=== PATIENT | male | born 1980 | race Caucasian/White ===

== ENCOUNTER 2019-03-16 19:59 | Emergency (ER) | payer SELFPAY ==
[2019-03-16 20:00] VITALS: BP 116/66; PULSE 90; RESP 15; TEMP 36.6; BMI 28.3
--- NOTE | 2019-03-16 20:38 | RAD_ITS ---
STUDY: X-RAY - RIGHT KNEE REASON FOR EXAM: Male, 38 years old. Right knee pain. Swelling. TECHNIQUE: 4 view(s) of the knee. COMPARISON: None. FINDINGS: Normal visualized distal femur. Normal visualized proximal tibia and fibula. Normal proximal tibiofibular articulation. There is no demonstrated fracture. Normal medial femorotibial compartment. Normal lateral femorotibial compartment. Normal patellofemoral articulation. There is a moderate volume joint effusion. The soft tissue structures are unremarkable. RAD/Knee 4 or More Views IMPRESSION: Moderate effusion. Otherwise negative. Electronically Signed: Alfonso Arenas MD at 21:09 EDT , Service support ,
[2019-03-16] MEDS: Ketorolac 60 MG/2 ML Vial IM (20:47)
--- NOTE | 2019-03-16 20:49 | ED.VISSUMM ---
- ER Visit Summary Date of Service: 03/16/19 Chief Complaint: Right knee pain History of Present Illness: The patient is a [address] Miller. He reports he has right knee pain that began 2 days ago. He denies any trauma. No fall, MVA, or change in activity. He reports a sharp instead of 10 severity. Is worsened by nothing. Is relieved by ice. He denies any paresthesias or weakness distally. Review of systems: General: No fever, chills, cold sweats. Cardiovascular: No chest pain, palpitations. Respiratory: No cough, shortness of breath, dyspnea on exertion. Gastrointestinal: No abdominal pain, nausea, vomiting, diarrhea, melena, or hematochezia. Genitourinary: No dysuria, frequency, hematuria. Skin: No rash. Neuro: No headache, numbness, weakness. Physical Examination: Vitals: Stable. Afebrile. General: Well-nourished and well-developed. Head: Normocephalic atraumatic. Neck: Supple, no lymphadenopathy. No JVD. Nontender. Cardiovascular: Regular rate and rhythm. No murmurs. Respiratory: No respiratory distress. Clear to auscultation bilaterally. Abdominal: Soft, nontender, nondistended, normal bowel sounds. No guarding, rebound, or peritoneal signs. Back: Nontender. Extremities: Right knee: Moderate diffuse tenderness palpation. He does have a moderate joint effusion. There is no erythema or warmth to suggest a septic joint. He has pain, but no ligamentous instability with anterior/posterior drawer and medial/lateral stress. Skin: Normal color, no rash. Neurologic: Alert and oriented ?3. Cranial nerves II through XII are intact. Normal strength and sensation. Psych: Normal affect. Test Results: Clinical Impression(s) from Imaging Studies Knee X-Ray 03/16/19 20:38 IMPRESSION: Moderate effusion. Otherwise negative. Electronically Signed: Alfonso Arenas MD at 21:09 EDT , Service support , Emergency Department Course and Treatment: Patient was given a dose of Toradol IM. I did discuss the possibility of an arthrocentesis with him. He does not want this performed. Treatment Plan: Patient will be discharged instructions to ice his knee. Use Tylenol and/or ibuprofen for pain. Follow-up with his primary care physician 1 week if not improving. We did discuss the possibility of ligamentous or cartilaginous injury that would require MRI for further characterization. Disposition: To home in improved and stable condition. Impression: 1. Right knee pain, acute. This note was generated with [employer] dictation software. It may contain incorrect words, spelling, and punctuation that were not noted in review of the chart prior to signing ED Disposition - Plan for ED Patient: Disposition: Home or Assisted Living Instructions: KNEE PAIN, Uncertain Cause Prescriptions: Naproxen [Naprosyn] 500 mg PO BID #14 tab Prescription Printed Referrals: Ethan Miller DO [Primary Care Provider] - 1 Week if not improving
[2019-03-16 21:03] VITALS: RESP 16
== END 2019-03-16 21:03 | disposition home or self-care (01) ==
LOC: ED 20:39
PROVIDERS: Emergency Provider Emergency Medicine; Family Provider Student in an Organized Health Care Education/Training Program; PCP Student in an Organized Health Care Education/Training Program
DX: M25.561 Pain in right knee (principal)
CPT/HCPCS: 73564; 96372; 99282

== ENCOUNTER → 2024-12-19 | Outpatient (CLI) | payer MEDICAID, SELFPAY ==
[2024-12-19 17:04] LABS: Hematocrit 40.6 % (40-54); Hemoglobin 14.3 g/dL (13.0-16.5); Mean Corp Hgb Conc 35.2 g/dL (32-36); Mean Corpuscular Hgb 33.3 pg (27.0-32.0); Mean Corpuscular Volume 94.4 fL (80-94); Mean Platelet Vol. 8.2 fl (6.2-12.0); Platelet Count 259 K/mm3 (150-450); RBC Distribution Width CV 12.1 % (11.6-14.6); RBC Distribution Width SD 42.6 fl (35.1-43.9); White Blood Count 7.1 K/mm3 (4.4-11.0)
[2024-12-19 17:11] LABS: Hemoglobin A1c 6.3 % (<=5.6)
[2024-12-19 17:36] LABS: FOLATES,SERUM (FOLIC ACID) < 2.00 ng/mL (4.60-34.80)
== END | disposition home or self-care (01) ==
PROVIDERS: PCP Student in an Organized Health Care Education/Training Program
DX: Z00.00 Encounter for general adult medical examination without abnormal findings (principal); R73.03 Prediabetes; D75.89 Other specified diseases of blood and blood-forming organs; M10.9 Gout, unspecified
CPT/HCPCS: 36415; 82746; 83036; 83921; 84550; 85027